=== PATIENT | male | born 1955 | race Caucasian/White ===

== ENCOUNTER 2017-02-10 06:07 | Inpatient (IN) | payer OTHER ==
--- NOTE | 2017-02-02 13:40 | PCM.HPSURG ---
Subjective Date of Service: Jan 29, 2017 Referring Provider: Admitting Physician: Primary Care Physician: Marino Hunter MD Attending Physician: Rey Nava MD Chief Complaint SEE BELOW History of Present Illness Patient: Patrice Zamora Date of : 1955 Visit Type: Pre Op Visit Date: 01/29/2017 10:30 AM This 61 year old male presents for Preop C5 Corpectomy, C5-7 ACDF, Autograft, BMA and & Plate. History of Present Illness: 1. Preop C5 Corpectomy, C5-7 ACDF, Autograft, BMA, & Plate Patrice Zamora is a 61 year old male referred by Primary care Provider (PCP ) Dr. Dale Pichardo M.D. who presents today's date 01/29/2017 for a preoperative type of appointment concerning the decision for surgery involving C5 corpectomy, C6-7 discectomy, anterior cervical decompression & fusion with local autograft, iliac crest bone marrow aspiration, & anterior cervical plating from C5-7 secondary to a diagnosis of cervical spinal stenosis with myelopathy with related complaints of severe, intractable, and debilitating neck pain with spasm radiating to the left upper extremity with numbness & difficulty with coordination. The patient was last evaluated by Dr. Rey Nava M.D. on 12/11/2016 documenting presents follow-up evaluation 2 1 after bilateral L4-5 laminectomy for severe spinal stenosis. He reports resolution of preoperative back and radiating bilateral leg pain. Unfortunately the patient continues to complain of incoordination of his left leg. He states that he has difficulty walking on level surface and actually feels somewhat better on uneven ground. 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 The patient also is having ongoing neck symptoms. He complains of neck pain and crepitus. He complains of neck stiffness with loss of motion. He reports numbness that radiates into the left hand with incoordination of the left hand. According to Dr. Nava the patient has an MRI scan of the cervical spine that demonstrated cervical spinal stenosis with ossification of the posterior longitudinal ligament extending behind the vertebral body of C5 & at the C5-6 & C6-7 disc spaces. There is symptomatic spinal cord compression & severe left C5 -C6 & C6-7 neural foraminal stenosis with exiting nerve root compression indicating neurosurgical intervention involving corpectomy decompression, fusion & instrumented stabilization. While the patient is stable from a lumbar spinal standpoint Dr. Nava & the patient discussed all the risks and benefits associated with the proposed cervical spinal surgery as well as reasonable expectations with regards to surgical outcomes & the patient elected to proceed with surgery as planned. The patient denies any acute loss of control of bowel or bladder function, saddle paresthesia or anesthesia. The patient has a pertinent positive past medical, surgical and social history for the patient denies any significant surgical history other than the above & dental extractions. He has hypertension and is only a social drinker. The patient's related complaints have been a serious detriment to their happiness and activities of daily living. Having failed conservative treatment the patient presents today for their decision for surgery appointment involving C5 corpectomy, C6-7 discectomy, anterior cervical decompression & fusion with local autograft, iliac crest bone marrow aspiration, & anterior cervical plating from C5-7 for treatment of cervical spinal stenosis with myelopathy; related to severe, intractable, and debilitating neck pain with spasm radiating to the left upper extremity with numbness & difficulty with coordination. The procedure is scheduled to be performed by Dr. Rey Nava M.D. on 2016. Medical/Surgical/Interim History Reviewed, no change. Last detailed document date:01/29/2017. Family History: Reviewed, no changes. Last detailed document date:01/29/2017. Social History: Tobacco use reviewed. Reviewed, no changes. Last detailed document date: 01/29/2017. Allergies: Ingredient Reaction Medication Name Comment NO KNOWN ALLERGIES Reviewed, no changes. Review of Systems System Neg/Pos Details MS Positive Neck stiffness. Integumentary Negative Mrsa and rash. Eyes Negative Double vision and vision loss. ENMT Negative Hearing loss. Sunil/Lymph Negative Blood clots. Respiratory Negative Dyspnea, apnea and wheezing. Cardio Negative Chest pain, irregular heartbeat/palpitations, leg swelling and pacemaker. Psych Negative Anxiety and depression. Neuro Negative Dizziness, headache and seizures. Endocrine Negative Weight gain and weight loss. GI Negative Abdominal pain, constipation, diarrhea, nausea and vomiting. MS Negative Back pain, bone/joint symptoms and muscle weakness. Negative Dysuria, urge incontinence and urinary incontinence. Constitutional Negative Chills and fever. Vital Signs Height Time ft in cm Last Measured Height Position % 10:25 AM 5.0 11.00 180.34 01/29/2017 Weight/BSA/BMI Time lb oz kg Context % BMI kg/m2 BSA m2 10:25 AM 206.60 93.712 dressed with shoes 28.81 Blood Pressure Time BP mm/Hg Position Side Site Method Cuff Size 10:25 AM 128/76 sitting left arm manual adult large Temperature/Pulse/Respiration Time Temp F Temp C Temp Site Pulse/min Pattern Resp/ min 10:25 AM 97.5 36.4 temporal 81 regular 20 Pulse Oximetry/FIO2 Time Pulse Ox (Rest %) Pulse Ox (Amb %) O2 Sat O2 LPM Timing FiO2 % L/min Delivery Method 10:25 AM 96 Pain Scale Time Pain Score Method 10:25 AM 8/10 Numeric Pain Intensity Scale Measured By Time Measured by 10:25 AM Day Epstein MA Physical Exam Exam Findings Details Comments WD/WN, Male who is AO x 3, cooperative & appears to be in NAD w/ language & speech that is intact & fluent. There is no evidence of recent or remote memory impairment. The patient's knowledge is appropriate for age & level of education w/ a pleasant affect & euthymic mood. Ambulates w/ no difficulty. NC/AT, PERRL, EOMI, w/o facial droop, hearing grossly The back incision is well-healed w/ no S/Sx of infxn. Neck ROM is limited to 60 of rotation michael. Shoulder ROM is also restricted to 120 of abduction michael. Sensation is diminished to pinprick in the L 1-3 digits following the C6 nerve & C7 nerve distributions. Reflexes are 2+ biceps, brachialis & triceps michael. + L Salas's reflex. 2+ R knee jerk & Rt ankle jerk & 3+ L knee jerk with 4+ L ankle jerk. There are 3-5 beats of left ankle clonus. + L Babinski. His gait is mildly spastic L leg. Assessment/Plan # Detail Type Description 1. Assessment Stenosis of cervical spine with myelopathy (M47.12). 2. Assessment Preoperative examination (Z01.818). Patient Plan We including your Attending Surgeon have discussed the risks and benefits associated your scheduled procedure which you have verbally acknowledged understanding including but not limited to the possibility of an outcome that we are unable to predict or was not mentioned. 1. You are scheduled for a C5 corpectomy, C6-7 discectomy, anterior cervical decompression & fusion with local autograft, iliac crest bone marrow aspiration , & anterior cervical plating from C5-[address] Rey Nava M.D. at [facility] on 02/10/2017. 2. Check in time is 6 AM. Also please ignore instructions below if told otherwise by your preadmission nurse or if you do not take the medications listed below. 3. Nothing to eat after midnight the night before surgery. You may take all of your "approved" medications with small sips of water. Remember to take your a.m. hypertension medication if it is a beta huyen and ends in "olol. Otherwise ask your doctor if you need to hold your a.m. hypertension medication. 4. No aspirin, ibuprofen, Naprosyn, or other NSAIDs starting 7 days prior to surgery. 5. Please stop Warfarin/Coumadin or other blood thinners such as Plavix, Aggrenox, or Xarelto 7 days prior to your surgical procedure and follow specific instructions from your prescribing provider. 6. Please stop Lovenox bridging in the morning one day prior to procedure. 7. Please stop Suboxone/Buprenorphine at least 4 days prior to procedure. 8. Go to the hospital today to get her preoperative testing done. Take the order form to the surgery desk on the second floor of the hospital, [facility] (main entrance next to the emergency entrance). I will notify you if there is any test results that require further workup prior to surgery. 9. Follow the instructions you were given today, use the cleansing cloths the night before as well as the morning of her surgery. 10. If you are prescribed inhalers, CPAP or BiPAP machines you use at home bring along with you to the hospital. 11. ONLY If you take medications for Diabetes: If you have an insulin pump continue lowest (typically night-time) basal rate into the a.m. If you do not have a pump check h your a.m. blood sugar and hold insulin if BS less than 100. If you are taking long-acting, intermediate acting (NPH) or 70/30 preparation : Take half on day of procedure. If you are taking ultra long-acting insulin such as glargine, Lantus either at night or in the a.m. continue as scheduled ( including day of surgery). If you take short acting regular insulin (insulin not delivered via pump) discontinue on day of procedure. 12. Please call if you have any questions before your surgery: [phone]. Today's instructions/counseling include(s) Pre-operative instructions given to the patient and or legal entry level sales representative(s) orally and in writing. 13. Our office will contact you if there are any test results that require further workup prior to surgery. Provider Plan The patient's history and examination as well as radiological findings were reviewed with Dr. Rey Nava M.D. and conveyed the patient in detail. The findings are consistent with cervical spinal stenosis with myelopathy and are most likely the cause of the patient's severe, intractable, and debilitating neck pain with spasm radiating to the left upper extremity with numbness & difficulty with coordination. The patient has failed extensive conservative treatment for this condition. The treatment options were discussed with the patient. The options include attempt to live with the condition, reattempt conservative treatment, try a pain management intervention / injection or consider a surgical intervention. We are not extremely optimistic that further conservative treatment, pain management intervention and/or injection will adequately resolve the patient's symptoms of severe, intractable, and debilitating neck pain with spasm radiating to the left upper extremity with numbness & difficulty with coordination. Therefore we recommend C5 corpectomy, C6-7 discectomy, anterior cervical decompression & fusion with local autograft, iliac crest bone marrow aspiration, & anterior cervical plating from C5-7. The patient was provided/offered educational materials pertaining to their diagnosis and the above discussed procedure. We discussed the risks and benefits associated with this surgery. A spine model was used to explain the nature of this type of surgery. The risk of the required anesthesia was also mentioned including but not limited to organ failure such as heart attack, pneumonia and stroke even . The risk of this type of surgery was also mentioned. Including but not limited to an unsuccessful outcome, residual symptoms, odynophagia, dysphasia or sore throat, referred or radiating posterior spinal myofascial inflammatory pain or spasm, post operative instability, instrumentation failure, sensory changes, blood loss, blood clots, wound infection, spinal cord or nerve damage, CSF or lymph leak, damage to neighboring structures such as the recurrent laryngeal nerve, perforation of the esophagus or trachea, pseudoarthrosis, adjacent level disease, contraindication to MRI, Zan's Syndrome, vision loss, voice change, resulting in temporary or permanent dysfunction, even disability, paralysis, and . The recovery of this type of surgery was also mentioned. This included but was not limited to reasonable expectations for the treatment of myelopathy involving the surgical decompression of the cervical spinal cord; which will stop the progression of the patient's condition but cannot guarantee improvements in any associated physical complaints. The patient verbalized understanding all the risks and benefits, knowing that it is impossible to predict or guarantee every surgical outcome; and would like to proceed with the above discussed procedure anyways. Surgery is scheduled for 02/10/2017 The standard [facility] preoperative screening tests, medicine restrictions, and logistical protocols apply. Any preoperative testing is within normal limits to undergo the above discussed procedure unless otherwise noted in the medical record. Clinical Guidelines (Reviewed, no changes:Last detailed document date:) Medications (added, continued or stopped this visit): Start Date Medication Directions Stop Date 01/29/2017 docusate sodium 250 mg capsule take 1 capsule by oral route 2 times every day lisinopril 20 mg tablet take 1 tablet by oral route every day 02/09/2017 Percocet 5 mg-325 mg tablet take 1 - 2 tablet by oral route every 4 - 6 hours as needed for pain 02/09/2017 Valium 5 mg tablet take 1 - 2 Tablet by oral route every 8 hours as needed for spasm Counseling/Educational Factors: Counseling / educational factors reviewed. Counseling / educational factors reviewed. This is a visit of 60 minutes. 50 minutes were spent counseling. This document may have been created using voice recognition software or other electronic means and may contain inadvertent serging machine operator errors. Provider: Darrin LANDERS 01/29/2017 01:08 PM Document generated by: Darrin King 01/29/2017 01:08 PM CC Providers: Marino Hunter [address] [place] [id number]- Marino Rosenberg[address] [id number] [place] [address] jass soliz g Allergy Allergies: Coded Allergies: No Known Allergies (Unverified , 09/19/16) Social History Hx Alcohol Use: Yes ("SOCIAL") PMH HEENT History History of ENT Problems?: Yes Cardiovascular History History of Heart Problems?: Yes Cardiovascular History: Positive for:: Hypertension Denies:: Heart Murmur Respiratory History of Respiratory Problem: Yes Respiratory History: Positive for:: Use of C-PAP Machine (SNORES) Neurological History Hx Neurologic Problems?: Yes Gastrointestinal History HX of GI Problems?: No Genitourinary History Hx of Gu Problems?: No Female/Male History Reproductive History Male: Denies: Prostate Problems Scrotal Mass Skin History Skin History: Denies:: History Skin Disorders? Pressure Ulcers Musculoskeletal History Hx Musculoskeletal Problems?: Yes Musculoskeletal History: Positive for:: Back Injury (FALL FROM LADDER C/OF CERVICAL & LUMBAR PAIN (PLANNING CERVICAL JOSIAH)) Musculoskeletal Trauma (BACK INJURY/LOC IN FALL FROM LADDER) Psycho Social History Hx of Psycho/Social Problems?: No Other History Hx Any Other Health Problems?: Yes Other History: Denies:: Cancer Endocrine Disease Hospitalization Thyroid Disease Diabetes: No Social History Hx Alcohol Use: Yes ("SOCIAL") Darrin King PA-C February 02, 2017 13:40
[~2017-02-10] VITALS: Ht 177.8 cm; Wt 98.2 kg
[2017-02-10] VITALS (12 sets, daily range): BP systolic 126–147; BP diastolic 65–91; PULSE 7–82; RESP 10–18; O2SAT 85–100
[2017-02-10] MEDS: Lactated Ringer's 1,000 ML IV SCH ×3 (05:00→07:36)
[~2017-02-10 06:07] MED LIST: Bacitracin 50,000 unit Inj IRRIGATION ONE; CeFAZolin Inj 2 GM in Dextrose 5% 50 ML IV ONE; CeFAZolin Inj 2 GM in IV Premix 1 EACH IV ONE; DOCU250C2 PO; LISI-567 PO; Thrombin Powder 5,000 Unit TOPICAL ONE
[2017-02-10] MEDS ORDERED: Lactated Ringer's 1,000 ML IV SCH (07:18)
[2017-02-10] MEDS ORDERED: Lactated Ringer's 500 ML IV PRN (07:18)
[2017-02-10] MEDS ORDERED: hydrALAZINE 20 mg/mL Inj IVPUSH PRN (07:20)
[2017-02-10] MEDS ORDERED: Ondansetron 2 mg/mL 2 mL Inj IVPUSH PRN ×3 (07:20→11:15)
[2017-02-10] MEDS ORDERED: Dexamethasone 4 mg/mL Inj IVPUSH PRN (07:20)
[2017-02-10] MEDS ORDERED: EPHEDrine Sulfate 50 mg/mL Inj IVPUSH PRN (07:20)
[2017-02-10] MEDS ORDERED: Phenylephrine 10,000 mCg/mL Inj IVPUSH PRN (07:20)
[2017-02-10] MEDS ORDERED: MetoCLOpramide 5 mg/mL 2 mL Inj IVPUSH PRN ×2 (07:20→11:14)
[2017-02-10] MEDS ORDERED: Labetalol 5 mg/mL 4 mL Inj IV PRN (07:20)
[2017-02-10] MEDS ORDERED: Bupivacaine-MPF 0.5% W/EPI 30 mL Inj INFILTRATE ONE (07:36)
--- NOTE | 2017-02-10 08:26 | PCM.HPANE ---
Patient Data Date of Service: February 10, 2017 Surgeon Admitting Provider: Attending Provider:Rey Nava MD Primary Care Physician:Marino Hunter MD Other Provider:Stanton Hollins Anesthesia Reason for Visit Stenosis Of Cervical Spine With Myelopathy Ht/WT & BMI Height (Feet): 5 Height (Inches): 11.00 Weight (Kilograms): 92.9 Body Mass Index 28.00 Allergies Coded Allergies: No Known Allergies (Unverified , 09/19/16) Past Anesthesia History Anesthesia History: Denies:: Abnormal Airway, Anesthesia Reactions, Malignant Hyperthermia Diabetes History Hx Diabetes?: No Current Bedside Blood Glucose: 137 MRSA MRSA: No Medications Hypertension Medication: Yes Home Meds Incl Beta Roberta: No Reported Medications Docusate Sodium 250 Mg [id number] Mg PO BID PRN For Constipation Ref 0 02/04/17 Lisinopril 20 Mg [id number] Mg PO DAILY 30 Days Ref 0 02/04/17 Discontinued Reported Medications oxyCODONE-Acetaminophen 5-325 mg 1 Each Tablet1-2 Tab PO Q6H PRN For Pain Ref 0 09/19/16 Lisinopril 20 Mg [id number] Mg PO DAILY 30 Days Ref 0 09/19/16 Cyclobenzaprine 5 Mg Tablet5-10 Mg PO TID PRN Spasm 09/19/16 History History of ENT Problems?: No HEENT History: Denies:: Abnormal Airway Dysphagia Hearing Problem Sinus Problem Denture Type: None Teeth Condition: Missing Teeth Other HEENT Pertinent History: hx of dental extractions Hx of Heart Problems?: Yes Cardiovascular History: Positive for:: Hypertension Denies:: AICD Heart Murmur Pacemaker Peripheral Vascular Rheumatic Fever Hx of Respiratory Problem?: No Respiratory History: Denies:: Asthma COPD Dyspnea Emphysema Pneumonia Tuberculosis Use of C-PAP Machine Hx Neurologic Problems?: Yes Other Neurological Pertinent: past hx of trauma fall from ladder with LOC Hx of GI Problems?: No Hx of Problems?: No Genitourinary History: Denies:: Kidney Stones Male Hx: Denies:: Prostate Problems Scrotal Mass Testicular Surgery Skin History: Denies:: History Skin Disorders? Pressure Ulcers Hx Musculoskeletal Problems?: Yes Musculoskeletal History: Positive for:: Back Injury (cervical stenosis current admission problem) Musculoskeletal Trauma (hx of lumbar lami 09/2016) Osteoarthritis Denies:: Fibromyalgia Joint Replacement Hx of Psycho/Social Problems?: No Hx Surgeries?: Yes (DENTAL EXTRACTIONS, lumbar lami) Hx Any Other Health Problems?: Yes Other History: Denies:: Cancer Endocrine Disease Hospitalization Thyroid Disease History Blood Transfusions: Positive for:: Accept Blood Products? Denies:: Blood Transfusions Hx Diabetes: NoBedside Blood Glucose: 137 Hx Alcohol Use: Yes ("SOCIAL")Hx Substance Use: No Smoking Status: Smoker Current Status UNK Stop/Bang S-Snoring: Do You Snore Loudly: Yes T-Tired: feel tired, fatigued: No O-Obsered: Observed not breath: No P-Blood Pressure: treated: Yes B- Body Mass Index > 35 kg/m2: No A- Age over 50: Yes N- Neck Large Circumference: No G- Gender Male: Yes YANNICK Total Score: 4 YANNICK Risk Assessment: High Risk, =/>3 Yes YANNICK Category 2: Yes Risk Assessment Category Category 1A: Patient has history of documented sleep apnea, and HAS NOT received any narcotic, sedative or anesthesia administration during this stay. Category 1B: Patient has history of documented sleep apnea, and HAS received any narcotic , sedative or anesthesia administration during this stay Category 2: Patient has SUSPECTED Obstructive Sleep Apnea, and HAS received any narcotic , sedative or anesthesia administration during this stay. Category 3: Patient has SUSPECTED Obstructive Sleep Apnea and HAS NOT received narcotic, sedative or anesthesia administration during this stay. Category 4: Outpatient in Procedural Areas with known sleep apnea or who screen positive for High Risk via the STOP/BANG questionnaire. Exam Exam Vital Signs Vital Signs Date Time Temp Pulse Resp B/P Pulse Ox O2 Delivery O2 Flow Rate FiO2 02/10/17 07:05 36 80 16 141/91 99 Room Air General Appearance: Alert, Oriented X3, Cooperative, No Acute Distress HEENT/AIRWAY: MP 4, Neck Movement (decreased ROM), Mouth Opening (small mouth opening) Lungs: Clear to Auscultation, Normal Air Movement Heart: Exam Unremarkable, Regular Rate/Rhythm, No Murmurs/Rubs/Gallops Meds/Labs/Diagnostics Admission Meds Current Medications Lactated Ringer's (Lr) 1,000 ml @ 120 mls/hr Q8H20M IV Last administered on t 07:36; Start 02/10/17 at 05:00; Stop 02/10/17 at 13:19 Bacitracin (Bacitracin Inj) 50,000 unit PREOP ONCE IRRIGATION Last administered on 02/10/17 07:36; Start 02/10/17 at 06:00; Stop 02/10/17 at 06:01; Status DC Thrombin 5000 unit 5,000 unit PREOP ONCE TOPICAL Last administered on 07:36; Start 02/10/17 at 06:00; Stop 02/10/17 at 06:01; Status DC Cefazolin Sodium/ Dextrose/Premix (Ancef Inj / D5W 50mL/IV Premix) 50 ml @ 100 mls/hr PREOP ONCE IV Last administered on 02/10/17 07:57; Start 02/10/17 at 06: 05; Stop 02/10/17 at 06:34; Status DC Bupivacaine HCl/ Epinephrine Bitart (Sensorcaine-MPF 0.5% W/EPI Inj) 30 ml STK- MED ONCE INFILTRATE Last administered on 02/10/17 07:36; Start 02/10/17 at 07:36 ; Stop 02/10/17 at 08:22; Status DC Bedside Blood Glucose: 137 Plan Impression Patient chart reviewed, patient interviewed and anesthestic plan with risks, benefits, and alternatives discussed, and informed consent obtained. NPO per Anesth. Guidelines: Yes ASA Physical Status: ASA2 Mod Systemic Disease Anesthetic Plan: GA Bene/Risks/Altern/Consents: Yes HP Complete Prior to Induction: Yes Ulises Rodriguez MD February 10, 2017 08:26
--- NOTE | 2017-02-10 08:38 | DRSVH ---
PROCEDURE: X-RAY CERVICAL SPINE, 1 VIEW INDICATIONS: CERVICAL SPINE SPONDYLOSIS WITH MYELOPATHY TECHNIQUE: Single lateral view of the cervical spine acquired. COMPARISON: None. FINDINGS: Bones: Intraoperative marker demonstrates instrumentation at the C5-6 level. IMPRESSION: Single intraoperative view demonstrates instrumentation at the C5-6 level. This was discu ssed with Dr. Nava at 8:36 AM on 02/10/17. Dictated by: Shakira Guidry M.D. on 02/10/2017 at 8:35 Approved by: Shakira Guidry M.D. on 02/10/2017 at 8:37
[2017-02-10] MEDS ORDERED: Propofol 10,000 mCg/mL 20 mL Inj ONE (09:00)
[2017-02-10] MEDS ORDERED: HYDROmorphone 2 mg/mL Inj ONE (09:00)
[2017-02-10] MEDS ORDERED: Ondansetron 2 mg/mL 2 mL Inj ONE (09:00)
[2017-02-10] MEDS ORDERED: Dexamethasone 4 mg/mL Inj ONE (09:00)
[2017-02-10] MEDS ORDERED: Ketamine 10 mg/mL 20 mL Inj ONE (09:00)
[2017-02-10] MEDS ORDERED: Rocuronium 10 mg/mL 5 mL Inj ONE (09:00)
[2017-02-10] MEDS ORDERED: Remifentanil 1 mg/3 mL Inj ONE (09:00)
[2017-02-10] MEDS ORDERED: Benzocaine-Menthol Lozenge 2/Pkg PO PRN (11:15)
[2017-02-10] MEDS ORDERED: Polyethylene Glycol (PEG) 17 Gm Powder PO PRN (11:15)
[2017-02-10] MEDS ORDERED: Sodium Biphos-Phos 133 mL Enema RECTAL PRN (11:15)
[2017-02-10] MEDS ORDERED: HYDROmorphone 1 mg/mL Inj IVPUSH PRN (11:15)
[2017-02-10] MEDS ORDERED: Magnesium Hydroxide 10 mL Oral Concentration PO PRN (11:15)
[2017-02-10] MEDS ORDERED: Senna-Docusate 8.6-50 mg Tablet PO PRN (11:15)
[2017-02-10] MEDS: HYDROmorphone 1 mg/mL Inj IVPUSH PRN ×2 (11:21→11:46)
[2017-02-10] MEDS: fentaNYL-PF 50 mCg/mL 2 mL Inj IVPUSH PRN ×2 (11:21→11:46)
--- NOTE | 2017-02-10 11:41 | PCM.ANEP1 ---
Post Anesthesia Phase 1 PACU Phase 1 Assessment Date of Service: February 10, 2017 Vital Signs Vital Signs Date Time Temp Pulse Resp B/P Pulse Ox O2 Delivery O2 Flow Rate FiO2 02/10/17 11:35 74 16 140/85 98 Nasal Cannula 4 02/10/17 11:31 74 16 126/89 100 Nasal Cannula 4 02/10/17 11:25 76 11 131/86 95 Nasal Cannula 4 02/10/17 11:20 81 16 135/86 85 Room Air 02/10/17 11:15 7 12 126/65 96 Room Air 02/10/17 11:11 36.3 82 15 137/75 96 Room Air 02/10/17 07:05 36 80 16 141/91 99 Room Air Anesthetic Administered: GA Level of Alertness: Awake, talking Pain: No Nausea or Vomiting: No Cardiovascular Function and Hy: Yes Oxygen Delivery: Room Air Lungs: Clear to Auscultation, Normal Air Movement Ulises Rodriguez MD February 10, 2017 11:41
--- NOTE | 2017-02-10 11:43 | DRSVH ---
PROCEDURE: X-RAY CERVICAL SPINE, 1 VIEW INDICATIONS: CERVICAL FUSION - INTRAOPERATIVE IMAGE TECHNIQUE: Single lateral view of the cervical spine acquired. COMPARISON: [facility], CR, XR CERVICAL SPINE 1VW, 02/10/2017, 8:14. FINDINGS: Bones: Multilevel ACDF from the C4 through the C7 level with surgical hardware grossly in expected po sition. Soft tissues: ETT nasogastric tubes present and tips are not visualized. IMPRESSION: Multilevel ACDF. Dictated by: Sylvester TRONCOSO Interpreted: Daniella Reid MD on 02/10/2017 at 11:42 Transcribed by: MARISSA on 02/10/2017 at 11:43 Approved by: Daniella Reid M.D. on 02/10/2017 at 17:05
--- NOTE | 2017-02-10 12:22 | NUR ---
Arrived on Unit Patient arrived on floor from PACU in stable condition. Reported 8/10 neck pain. 10mg of oxycodone and 50mg of Vistaril given. Denied nausea at that time. VSS. HAYLEY draining sanguineous. Patient orientated to call light, bed, and phone. at bedside. Call light and tray table within reach. Will continue to monitor patient hourly.
[2017-02-10] MEDS: hydrOXYzine Pamoate 25 mg Capsule PO PRN ×3 (13:56→23:06)
--- NOTE | 2017-02-10 13:59 | OP ---
[address] [address] OPERATIVE REPORT PATIENT: BATOOL BARRERA : 1955 MR#: [id number] ADMIT: 02/10/2017 JOB ID: [id number] DATE OF SURGERY: 02/10/2017 SURGEON: Rey Nava MD. PREOPERATIVE DIAGNOSIS(ES): Multilevel cervical stenosis with radiculopathy and myelopathy. POSTOPERATIVE DIAGNOSIS(ES): Multilevel cervical stenosis with radiculopathy and myelopathy. PROCEDURE: C5 corpectomy and C6-7 diskectomy, C5-C7 fusion, interbody cages at C5 corpectomy and C6-7 diskectomy with a titanium mesh cage at the corpectomy and polyetheretherketone interbody cage at the diskectomy. Plating of C4, C5, C6, C7 with NuVasive Archon titanium plate. [place] of morcellized local autograft. Microdissection. INSTITUTIONAL RESEARCH DIRECTOR: Darrin King PA-C. Sales And Training Specialist provide irrigation, retraction and suction and was medically necessary for the procedure. OPERATIVE PROCEDURE: Patient was brought to the operating room. General anesthesia with oral intubation was administered. Patient was positioned supine and shoulders taped down. The anterior neck was prepped and draped in a sterile fashion. IV Ancef was given. Compression boots were applied to the legs. All extremities were padded. Time-out was performed. A horizontal incision was made from the midline towards the right at the cricoid cartilage level. Incision was carried down to subcutaneous tissue. Platysma muscle was dissected free and incised horizontally and a plane was developed between the sternocleidomastoid laterally and the strap muscles medially until the anterior aspect of cervical spine was encountered. Large anterior osteophytes were encountered. These were removed with bone rongeur and then a needle was placed at the C5-6 disc level to confirm the levels for the procedure with x-ray imaging. The osteophyte removal was done at C4-5, C5-6 and C6-7, and a deep self-retaining retractor was placed. Distracting pins were placed in the C4 and C6 vertebral bodies. The C4-5 and C5-6 disks was incised and diskectomies were carried out with curettes and pituitary rongeurs under the operating microscope. The posterior disc material was removed. The C5-6 disk was partially calcified and had to be drilled out with a high-speed bur. Once the posterior annulus was encountered, the bone rongeur was then used to remove the vertebral body of C5. This morcellized bone was saved to be used as local autograft. Bone removal continued down to the posterior cortex. High-speed bur was then used to drill down the posterior cortex to a very thin layer on the posterior longitudinal ligament. A 2 mm Kerrison was then used to remove the posterior longitudinal ligament and decompress the thecal sac. A high-speed bur was used to remove some of the osteophyte at the right C5-6 disk level which was severely indenting the thecal sac and spinal cord and extending into the foramen where it was severely compressing the right C6 nerve root. All of this excess bone material was removed with a trudi bur and the exiting C6 nerve root was completely decompressed and visualized, as was the entire thecal sac. The endplates were then prepared with a bur. The space was measured and then a 14 mm diameter NuVasive titanium mesh cage was cut down to the appropriate size and packed with the local morcellized autograft and then implanted into the corpectomy defect. The C6-7 disc was then approached. The distracting pin was removed from C4 and placed in C7. The C6-7 disc was incised and opened up with the distractor. The disc had to be partially drilled out and also removed with curette, and under the operating microscope, large posterior osteophytes were encountered extending into the right C7 nerve root foramen. These were completely removed with high-speed bur and 2 mm Kerrison and the exiting C7 nerve root on the left was completely decompressed. The endplates were prepared with a bur. The space was measured and an 8 mm anterior height PEEK cage was selected. It was filled with the morcellized autograft and impacted into the disc space. Distracting pins were removed. The appropriate length NuVasive Archon titanium plate was affixed to the spine. Forensic Manager holes were made with an awl and then variable angle screws were placed, two at C4, two at C6, and two at C7. There was tight purchase of the screws into the bone. Locking cap and the plate were rotated to cover the screws and prevent screw backout. An x-ray was taken to confirm positioning of the hardware. The wound was irrigated. All bleeding points were stopped with bipolar cautery. A 10-Setswana round HAYLEY drain was left against the spine and brought out through a separate stab incision connected to a HAYLEY bulb, and the wound was closed with 3-0 Vicryl platysma, 3-0 Vicryl deep dermis, and Steri-Strips in the skin. Sterile dressing was applied. Patient was placed in a hard collar, awakened, extubated, and brought to recovery room in stable condition. There were no complications. ESTIMATED BLOOD LOSS: 50 cc.
[2017-02-10] MEDS: Dexamethasone 4 mg/mL Inj IVPUSH SCH ×3 (14:30→20:47)
[2017-02-10] MEDS: Acetaminophen IV 1,000 MG in IV Premix 1 EACH IV SCH ×3 (15:30→23:23)
[2017-02-10] MEDS: 0.9% Sodium Chloride 1,000 ML IV SCH ×2 (15:30→20:20)
[2017-02-10] MEDS: Benzocaine (Hurricaine) 20% Unit-Dose Spray MUC_MEMBRM PRN (16:56)
[2017-02-10] MEDS: CeFAZolin Inj 2 GM in IV Premix 1 EACH IV SCH (17:01)
[2017-02-10] MEDS: Senna-Docusate 8.6-50 mg Tablet PO SCH (20:44)
[2017-02-11] MEDS: CeFAZolin Inj 2 GM in IV Premix 1 EACH IV SCH (00:36)
[2017-02-11 00:40] VITALS: BP 130/73; PULSE 84; RESP 16; O2SAT 95
[2017-02-11] MEDS: Dexamethasone 4 mg/mL Inj IVPUSH SCH ×2 (03:00→09:00)
[2017-02-11] MEDS: Benzocaine (Hurricaine) 20% Unit-Dose Spray MUC_MEMBRM PRN ×2 (05:07→13:33)
--- NOTE | 2017-02-11 05:10 | NUR ---
Throat pain Primary concern this shift is throat pain, pt does not want cepacol lozenges he perfers hurricaine spray. Refuses SCDs as they are disturbing his sleep. Otherwise he is comfortable, no complaints related to collar, no sob or chest pain. Numbness in L arm decreases and he states odd feeling in hand and decreased coordination in AM- registered dental assistant rda equal. Care continues
[2017-02-11 05:20] VITALS: BP 150/92; PULSE 85; RESP 16; O2SAT 96
[2017-02-11] MEDS: hydrOXYzine Pamoate 25 mg Capsule PO PRN (05:44)
[2017-02-11] MEDS: Acetaminophen IV 1,000 MG in IV Premix 1 EACH IV SCH ×2 (05:46→13:37)
[2017-02-11] MEDS: Senna-Docusate 8.6-50 mg Tablet PO SCH (09:00)
--- NOTE | 2017-02-11 09:48 | DRSVH ---
PROCEDURE: X-RAY CERVICAL SPINE, 1 VIEW INDICATIONS: C5 corpectomy C6-7 ACDF & plating TECHNIQUE: Single lateral view of the cervical spine acquired. COMPARISON: , CR, XR CERVICAL SPINE 1VW, 02/10/2017, 10:19. FINDINGS: Bones: Multilevel ACDF from the C4 through the C7 level with surgical hardware grossly in expected un changed position. Soft tissues: ETT nasogastric tubes present and tips are not visualized. IMPRESSION: Stable exam status post multilevel ACDF. Dictated by: Sylvester aGtes RRIsidra Interpreted: Daniella Reid MD on 02/11/2017 at 9:47 Transcribed by: MARISSA on 02/11/2017 at 9:48 Approved by: Daniella Reid M.D. on 02/11/2017 at 17:44
--- NOTE | 2017-02-11 09:49 | PCM.DISURG ---
Surgical Discharge Instruction Date of Service February 11, 2017 Dates of Hospitalization Date of Hospital Admission February 10, 2017 at 12:25 Providers Admitting Physician: Rey Nava MD Primary Care Physician: Marino Hunter MD Attending Physician: Rey Nava MD Discharge Diagnosis Discharge Diagnosis Status post C5 corpectomy and C6-7 diskectomy, C5-C7 fusion, interbody cages at C5 corpectomy and C6-7 diskectomy with a titanium mesh cage at the corpectomy and interbody cage at the diskectomy, Plating of C4, C5, C6, C7 & [place] of morcellized local autograft. Post Operative diagnosis Status post C5 corpectomy and C6-7 diskectomy, C5-C7 fusion, interbody cages at C5 corpectomy and C6-7 diskectomy with a titanium mesh cage at the corpectomy and interbody cage at the diskectomy, Plating of C4, C5, C6, C7 & [place] of morcellized local autograft. Additional Instructions Discharge Instructions Cervical Spinal Corpectomy, Discectomy, Decompression, Fusion, & Plating Instructions What is my recovery like? The hospital stay is usually overnight. After the surgery, you might have a sore throat. This is very common due to the retraction (moving) of the esophagus and trachea. The sore throat usually resolves in 1-2 weeks. Drinking lots of fluids will help improve the symptoms. The hard cervical collar should be worn at all times except for bathing. On your postoperative follow-up appointments, your Doctor will perform X-rays to see how well everything is healing. What are my restrictions? You should not lift anything heavier than five pounds. Avoid excessive movements of your neck until instructed specifically by your Doctor. Can I Shower? You may shower when you go home. You must remove the outside dressing on the 7th day after surgery, or change dressing as needed if soiled or saturated ( replacing new sterile gauze & water proof dressing) otherwise leave alone. The small pieces of tape (steri-strips) directly on top of the incision may get wet. The steri-strips will fall off on their own. Can I drive? No, you should not drive until specifically given permission from your Doctor in a follow up appointment. Most Patient's can drive in 2-3 weeks if they are not taking narcotic pain medications or muscle relaxers. You may ride in a car, but should avoid trips longer than two hours in duration. When can I return work / sports? Your Doctor will discuss your return to work with you on your first postoperative follow-up appointment. Most patients may return to work within 2 weeks for sedentary jobs. More physically demanding jobs may require 3-6 months of healing before such work can be considered. When should I call the doctor? You should call your Doctor or go to the Emergency Department if you develop chest pain, shortness of breath, a temperature greater than 101.5 F, severe uncontrolled pain or weakness, loss of bowel or bladder function, choking, swelling, lots or drainage, pus discharge or constipation. Instructions Regarding Comfort & Pain Medication Use: During the recovery period , even with the use of pain medication, you may experience pain at the site of surgery. You may also have the same type of pain you had before surgery. Please use your pain scale as a guide for taking your pain medication. When your pain is greater than 4 out of 10, or when your pain reaches your personal tolerable level of pain, take your pain medication as prescribed. Use your pain medication on an 'as needed' basis. This means if your pain level is within your tolerable level of pain you DO NOT need to take the medication. As you get better, you will notice you can increase the time interval between doses and decrease the number of tablets you are taking, gradually taking less and less pain medication. Taking pain medication when it is not necessary (for example when your pain is tolerable or acceptable) can result in dangerous side effects and over- sedation. Signs and symptoms of over-sedation include: drowsiness, excessive sleeping, slow or difficult breathing, slurred speech, impaired thinking, confusion, impaired motor coordination. If you have any of these symptoms stop taking the medication and immediately contact your doctor. IF SYMPTOMS ARE LIFE THREATENING CALL 911. To decrease pain and swelling, frequently apply an ice pack for 20 min intervals with at least one hour off. When to take Acetaminophen for pain? If you don't have liver problems, allergies and/or Tylenol is not in your current pain medication. Take Extra Strength Tylenol 500mg 2 tabs by mouth every 6 hours as needed for pain. DO NOT EXCEED 8 TABS PER DAY. Follow Up Plan Follow Up Plan Follow-up with physician metal moulder's assistant in outpatient neurosurgical clinic in 1 week for wound check. Follow-up Provider (F9): Darrin King PA-C Additional Information Attending Statement All documentation reviewed & orders authorized by Brielle Pena Scott PA-C February 11, 2017 09:38
--- NOTE | 2017-02-11 09:59 | PCM.DC.SUR ---
Discharge Summary Date of Service: February 11, 2017 Date of Hospital Admission: February 10, 2017 at 12:25 Date of Operation(s): 02/10/2017 Date of Discharge: 02/11/2017 Operation C5 corpectomy and C6-7 diskectomy, C5-C7 fusion, interbody cages at C5 corpectomy and C6-7 diskectomy with a titanium mesh cage at the corpectomy and interbody cage at the diskectomy, Plating of C4, C5, C6, C7 & [place] of morcellized local autograft. Brief History and Physical: Patient: Patrice Zamora Date of : 1955 Visit Type: Pre Op Visit Date: 01/29/2017 10:30 AM This 61 year old male presents for Preop C5 Corpectomy, C5-7 ACDF, Autograft, BMA and & Plate. History of Present Illness: 1. Preop C5 Corpectomy, C5-7 ACDF, Autograft, BMA, & Plate Patrice Zamora is a 61 year old male referred by Primary care Provider (PCP ) Dr. Dale Pichardo M.D. who presents today's date 01/29/2017 for a preoperative type of appointment concerning the decision for surgery involving C5 corpectomy, C6-7 discectomy, anterior cervical decompression & fusion with local autograft, iliac crest bone marrow aspiration, & anterior cervical plating from C5-7 secondary to a diagnosis of cervical spinal stenosis with myelopathy with related complaints of severe, intractable, and debilitating neck pain with spasm radiating to the left upper extremity with numbness & difficulty with coordination. The patient was last evaluated by Dr. Rey Nava M.D. on 12/11/2016 documenting presents follow-up evaluation 2 1 after bilateral L4-5 laminectomy for severe spinal stenosis. He reports resolution of preoperative back and radiating bilateral leg pain. Unfortunately the patient continues to complain of incoordination of his left leg. He states that he has difficulty walking on level surface and actually feels somewhat better on uneven ground. 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 The patient also is having ongoing neck symptoms. He complains of neck pain and crepitus. He complains of neck stiffness with loss of motion. He reports numbness that radiates into the left hand with incoordination of the left hand. According to Dr. Nava the patient has an MRI scan of the cervical spine that demonstrated cervical spinal stenosis with ossification of the posterior longitudinal ligament extending behind the vertebral body of C5 & at the C5-6 & C6-7 disc spaces. There is symptomatic spinal cord compression & severe left C5 -C6 & C6-7 neural foraminal stenosis with exiting nerve root compression indicating neurosurgical intervention involving corpectomy decompression, fusion & instrumented stabilization. While the patient is stable from a lumbar spinal standpoint Dr. Nava & the patient discussed all the risks and benefits associated with the proposed cervical spinal surgery as well as reasonable expectations with regards to surgical outcomes & the patient elected to proceed with surgery as planned. The patient denies any acute loss of control of bowel or bladder function, saddle paresthesia or anesthesia. The patient has a pertinent positive past medical, surgical and social history for the patient denies any significant surgical history other than the above & dental extractions. He has hypertension and is only a social drinker. The patient's related complaints have been a serious detriment to their happiness and activities of daily living. Having failed conservative treatment the patient presents today for their decision for surgery appointment involving C5 corpectomy, C6-7 discectomy, anterior cervical decompression & fusion with local autograft, iliac crest bone marrow aspiration, & anterior cervical plating from C5-7 for treatment of cervical spinal stenosis with myelopathy; related to severe, intractable, and debilitating neck pain with spasm radiating to the left upper extremity with numbness & difficulty with coordination. The procedure is scheduled to be performed by Dr. Rey Nava M.D. on 2016. Medical/Surgical/Interim History Reviewed, no change. Last detailed document date:01/29/2017. Family History: Reviewed, no changes. Last detailed document date:01/29/2017. Social History: Tobacco use reviewed. Reviewed, no changes. Last detailed document date: 01/29/2017. Allergies: Ingredient Reaction Medication Name Comment NO KNOWN ALLERGIES Reviewed, no changes. Review of Systems System Neg/Pos Details MS Positive Neck stiffness. Integumentary Negative Mrsa and rash. Eyes Negative Double vision and vision loss. ENMT Negative Hearing loss. Sunil/Lymph Negative Blood clots. Respiratory Negative Dyspnea, apnea and wheezing. Cardio Negative Chest pain, irregular heartbeat/palpitations, leg swelling and pacemaker. Psych Negative Anxiety and depression. Neuro Negative Dizziness, headache and seizures. Endocrine Negative Weight gain and weight loss. GI Negative Abdominal pain, constipation, diarrhea, nausea and vomiting. MS Negative Back pain, bone/joint symptoms and muscle weakness. Negative Dysuria, urge incontinence and urinary incontinence. Constitutional Negative Chills and fever. Vital Signs Height Time ft in cm Last Measured Height Position % 10:25 AM 5.0 11.00 180.34 01/29/2017 Weight/BSA/BMI Time lb oz kg Context % BMI kg/m2 BSA m2 10:25 AM 206.60 93.712 dressed with shoes 28.81 Blood Pressure Time BP mm/Hg Position Side Site Method Cuff Size 10:25 AM 128/76 sitting left arm manual adult large Temperature/Pulse/Respiration Time Temp F Temp C Temp Site Pulse/min Pattern Resp/ min 10:25 AM 97.5 36.4 temporal 81 regular 20 Pulse Oximetry/FIO2 Time Pulse Ox (Rest %) Pulse Ox (Amb %) O2 Sat O2 LPM Timing FiO2 % L/min Delivery Method 10:25 AM 96 Pain Scale Time Pain Score Method 10:25 AM 8/10 Numeric Pain Intensity Scale Measured By Time Measured by 10:25 AM Day Epstein MA Physical Exam Exam Findings Details Comments WD/WN, Male who is AO x 3, cooperative & appears to be in NAD w/ language & speech that is intact & fluent. There is no evidence of recent or remote memory impairment. The patient's knowledge is appropriate for age & level of education w/ a pleasant affect & euthymic mood. Ambulates w/ no difficulty. NC/AT, PERRL, EOMI, w/o facial droop, hearing grossly The back incision is well-healed w/ no S/Sx of infxn. Neck ROM is limited to 60 of rotation michael. Shoulder ROM is also restricted to 120 of abduction michael. Sensation is diminished to pinprick in the L 1-3 digits following the C6 nerve & C7 nerve distributions. Reflexes are 2+ biceps, brachialis & triceps michael. + L Salas's reflex. 2+ R knee jerk & Rt ankle jerk & 3+ L knee jerk with 4+ L ankle jerk. There are 3-5 beats of left ankle clonus. + L Babinski. His gait is mildly spastic L leg. Assessment/Plan # Detail Type Description 1. Assessment Stenosis of cervical spine with myelopathy (M47.12). 2. Assessment Preoperative examination (Z01.818). Patient Plan We including your Attending Surgeon have discussed the risks and benefits associated your scheduled procedure which you have verbally acknowledged understanding including but not limited to the possibility of an outcome that we are unable to predict or was not mentioned. 1. You are scheduled for a C5 corpectomy, C6-7 discectomy, anterior cervical decompression & fusion with local autograft, iliac crest bone marrow aspiration , & anterior cervical plating from C5-[address] Rey Nava M.D. at [facility] on 02/10/2017. 2. Check in time is 6 AM. Also please ignore instructions below if told otherwise by your preadmission nurse or if you do not take the medications listed below. 3. Nothing to eat after midnight the night before surgery. You may take all of your "approved" medications with small sips of water. Remember to take your a.m. hypertension medication if it is a beta huyen and ends in "olol. Otherwise ask your doctor if you need to hold your a.m. hypertension medication. 4. No aspirin, ibuprofen, Naprosyn, or other NSAIDs starting 7 days prior to surgery. 5. Please stop Warfarin/Coumadin or other blood thinners such as Plavix, Aggrenox, or Xarelto 7 days prior to your surgical procedure and follow specific instructions from your prescribing provider. 6. Please stop Lovenox bridging in the morning one day prior to procedure. 7. Please stop Suboxone/Buprenorphine at least 4 days prior to procedure. 8. Go to the hospital today to get her preoperative testing done. Take the order form to the surgery desk on the second floor of the [facility] (main entrance next to the emergency entrance). I will notify you if there is any test results that require further workup prior to surgery. 9. Follow the instructions you were given today, use the cleansing cloths the night before as well as the morning of her surgery. 10. If you are prescribed inhalers, CPAP or BiPAP machines you use at home bring along with you to the hospital. 11. ONLY If you take medications for Diabetes: If you have an insulin pump continue lowest (typically night-time) basal rate into the a.m. If you do not have a pump check h your a.m. blood sugar and hold insulin if BS less than 100. If you are taking long-acting, intermediate acting (NPH) or 70/30 preparation : Take half on day of procedure. If you are taking ultra long-acting insulin such as glargine, Lantus either at night or in the a.m. continue as scheduled ( including day of surgery). If you take short acting regular insulin (insulin not delivered via pump) discontinue on day of procedure. 12. Please call if you have any questions before your surgery: [phone]. Today's instructions/counseling include(s) Pre-operative instructions given to the patient and or legal passenger relations representative(s) orally and in writing. 13. Our office will contact you if there are any test results that require further workup prior to surgery. Provider Plan The patient's history and examination as well as radiological findings were reviewed with Dr. Rey Nava M.D. and conveyed the patient in detail. The findings are consistent with cervical spinal stenosis with myelopathy and are most likely the cause of the patient's severe, intractable, and debilitating neck pain with spasm radiating to the left upper extremity with numbness & difficulty with coordination. The patient has failed extensive conservative treatment for this condition. The treatment options were discussed with the patient. The options include attempt to live with the condition, reattempt conservative treatment, try a pain management intervention / injection or consider a surgical intervention. We are not extremely optimistic that further conservative treatment, pain management intervention and/or injection will adequately resolve the patient's symptoms of severe, intractable, and debilitating neck pain with spasm radiating to the left upper extremity with numbness & difficulty with coordination. Therefore we recommend C5 corpectomy, C6-7 discectomy, anterior cervical decompression & fusion with local autograft, iliac crest bone marrow aspiration, & anterior cervical plating from C5-7. The patient was provided/offered educational materials pertaining to their diagnosis and the above discussed procedure. We discussed the risks and benefits associated with this surgery. A spine model was used to explain the nature of this type of surgery. The risk of the required anesthesia was also mentioned including but not limited to organ failure such as heart attack, pneumonia and stroke even . The risk of this type of surgery was also mentioned. Including but not limited to an unsuccessful outcome, residual symptoms, odynophagia, dysphasia or sore throat, referred or radiating posterior spinal myofascial inflammatory pain or spasm, post operative instability, instrumentation failure, sensory changes, blood loss, blood clots, wound infection, spinal cord or nerve damage, CSF or lymph leak, damage to neighboring structures such as the recurrent laryngeal nerve, perforation of the esophagus or trachea, pseudoarthrosis, adjacent level disease, contraindication to MRI, Zan's Syndrome, vision loss, voice change, resulting in temporary or permanent dysfunction, even disability, paralysis, and . The recovery of this type of surgery was also mentioned. This included but was not limited to reasonable expectations for the treatment of myelopathy involving the surgical decompression of the cervical spinal cord; which will stop the progression of the patient's condition but cannot guarantee improvements in any associated physical complaints. The patient verbalized understanding all the risks and benefits, knowing that it is impossible to predict or guarantee every surgical outcome; and would like to proceed with the above discussed procedure anyways. Surgery is scheduled for 02/10/2017 The standard [facility] preoperative screening tests, medicine restrictions, and logistical protocols apply. Any preoperative testing is within normal limits to undergo the above discussed procedure unless otherwise noted in the medical record. Clinical Guidelines (Reviewed, no changes:Last detailed document date:) Medications (added, continued or stopped this visit): Start Date Medication Directions Stop Date 01/29/2017 docusate sodium 250 mg capsule take 1 capsule by oral route 2 times every day lisinopril 20 mg tablet take 1 tablet by oral route every day 02/09/2017 Percocet 5 mg-325 mg tablet take 1 - 2 tablet by oral route every 4 - 6 hours as needed for pain 02/09/2017 Valium 5 mg tablet take 1 - 2 Tablet by oral route every 8 hours as needed for spasm Counseling/Educational Factors: Counseling / educational factors reviewed. Counseling / educational factors reviewed. This is a visit of 60 minutes. 50 minutes were spent counseling. This document may have been created using voice recognition software or other electronic means and may contain inadvertent supervisor [employer] errors. Provider: Darrin LANDERS 01/29/2017 01:08 PM Document generated by: Darrin King 01/29/2017 01:08 PM CC Providers: Marino Hunter [address] [place] [id number] Marino Hunter [address] [place] [address] [place] [address] [address] [place] [address] w w w . s r c l i n i c s . o r g Hospital Course: Hospital Course: The patient was admitted through same day surgery and subsequently underwent a C5 corpectomy and C6-7 diskectomy, C5-C7 fusion, interbody cages at C5 corpectomy and C6-7 diskectomy with a titanium mesh cage at the corpectomy and interbody cage at the diskectomy, Plating of C4, C5, C6, C7 & [place] of morcellized local autograft. The patient tolerated the procedure well. The patient was then was transferred to PACU and then to the [facility] floor. The patient was admitted for postoperative pain control, PT/OT, supervised for hypertension , & anxiety co-morbidities with, inpatient nurse monitoring, continuous pulse oximetry, and discharge planning. The Patient's overnight course was within normal limits. Currently the patient has complaints of mostly moderate dysphagia with only minor surgical site pain, & posterior referred myofascial inflammatory pain/spasm adequately controlled with her current postoperative analgesics & muscle relaxants. There is significant improvement of the patient's residual myeloradiculopathy symptoms especially with regards to his right upper extremity. However he does complain of some mild left wrist weakness & palm numbness. The patient denies headache, severe sore throat or dysphagia, chest pain, shortness of breath, abdominal pain, nausea, vomiting, constipation, diarrhea, or any new onset &/or location of pain, weakness or paresthesias aside from the surgical site. PHYSICAL EXAM This is a well developed, well nourished, male who is alert, cooperative, and appears to be in no acute distress with a pleasant affect & euthymic mood. Exam of the head is normocephalic. PERRL, EOMI, without facial droop, hearing grossly intact, nostrils patent, oral cavity and pharynx normal. Voice is within normal limits Exam or the heart reveals regular rate and rhythm without audible murmurs The lungs are clear to auscultation bilaterally. The abdomen is non- tender and non-distended. Exam of the anterior cervical surgical wound reveals that it is clean, dry, and intact; without signs of infection, inflammation, and/or hematoma. There will be a rate of output that is less than 30 mL from the surgical surgical drain and a 8 hour period prior to discharge. Gross exam of the extremities reveals strength & sensation are grossly intact within the patient's normal baseline limits except reports a diminished sensation in the left thumb and mild left wrist extension weakness 4/5. The patient was eventually able to get out of bed and ambulate within acceptable limits. Therapy services made recommendations for disposition. Flatus was appreciated and the patient was able to void without significant difficulty. The pain was gradually under control. The patient was afebrile on discharge. The patient's incision(s) was clean, dry and intact. The dressing was changed to the Surgeon's specifications. The rate of output from the wound drain will be less then 30cc's in an 8 hour period prior to discharge and therefore the drain will then be removed. The patient progressed well with rehabilitation and was subsequently discharged to home in stable condition. The patient does not meet Dr. Nava specific parameters set forth in the discharge order including but not limited to drain output & x-ray review the patient will remain in hospital until Further notice. The patient verbally affirmed understanding when given clear instruction regarding the postoperative care and follow-up including but not limited to seeking immediate medical attention for chest pain, shortness of breath, a temperature greater than 101.5 F, severe uncontrolled pain or weakness, loss of bowel or bladder function, choking, lots or drainage, pus discharge or constipation. All questions were answered. Disposition: Home in stable condition. Follow-up Plan: Follow-up with physician mortgage assistant in outpatient neurosurgical clinic in 1 week for wound check. Docusate Sodium (Docusate Sodium) 250 Mg Capsule 250 MG PO BID PRN PRN For Constipation (Reported) Lisinopril (Lisinopril) 20 Mg Tablet 20 MG PO DAILY (Reported) Discharge Medications: Prescribed during the patient's preoperative appointment with the addition of a Medrol Dosepak sent electronically to his pharmacy from the clinical EMR. Attending Statement: All documentation reviewed & orders authorized by Dr. Rey Nava M.D. copies to: Darrin King PA-C, Scott PA-C February 11, 2017 09:59
--- NOTE | 2017-02-11 10:19 | NUR ---
Social Work: Screening / D/C Data: Pt is a 61 y/o male admitted for stenosis of cervical spine with myelopat. Pt's PCP is Dr Hunter, pt's insurance is [employer] EMR reviewed. D/C orders are in. No d/c planning needs. FUEL RETROFITTING TECHNICIAN will continue to follow if needs arise. Assessment: Pt who is independent at baseline. Plan: Pt will d/c home via POV today. No d/c planning needs. FUEL RETROFITTING TECHNICIAN will continue to follow if needs arise. DEJA Spicer
--- NOTE | 2017-02-11 10:26 | NUR ---
Evaluation completed. Please go to "Notes" then click on "Assessments and Notes" (bottom left corner of screen). Then select appropriate discipline tab on top of screen.
--- NOTE | 2017-02-11 10:44 | NUR ---
Evaluation completed. Please go to "Notes" then click on "Assessments and Notes" (bottom left corner of screen). Then select appropriate discipline tab on top of screen.
[2017-02-11 12:17] VITALS: BP 131/77; PULSE 86; RESP 16; O2SAT 96
[2017-02-11 14:13] VITALS: BP 155/68; PULSE 95; RESP 16; O2SAT 95
--- NOTE | 2017-02-11 15:10 | NUR ---
Discharge Pt discharged to home with spouse via private vehicle at 1500 hrs. PIV removed intact. VSS. Pain controlled. All personal possessions sent with pt. Discharge and followup instructions given to pt and he expressed understanding.
== END 2017-02-11 15:00 | disposition home or self-care (01) | DRG 321 ==
LOC: SAS 06:07 → OSC 12:25
PROVIDERS: ADMIT Neurological Surgery; ATTEND Neurological Surgery
PROC: 0RT30ZZ Resection of Cervical Vertebral Disc, Open Approach (ICD-10-PCS; 2017-02-10)
PROC: 0RG10A0 Fusion of Cervical Vertebral Joint with Interbody Fusion Device, Anterior Approach, Anterior Column, Open Approach (ICD-10-PCS; principal; 2017-02-10 07:30)
DX: M47.12 Other spondylosis with myelopathy, cervical region (principal); I10 Essential (primary) hypertension; M48.02 Spinal stenosis, cervical region; M54.12 Radiculopathy, cervical region; F41.9 Anxiety disorder, unspecified